=== PATIENT | male | born 1945 | race Two or more races ===

== ENCOUNTER 2024-11-15 09:19 | Emergency (ER) | payer OTHER ==
[~2024-11-15] VITALS: Ht 190.5 cm; Wt 123.8 kg
[2024-11-15 09:51] VITALS: BP 131/76; O2SAT 93
[2024-11-15] MEDS ORDERED: METFORMIN HCL500 M3 PO (09:57)
[2024-11-15] MEDS ORDERED: COZAAR100 MG PO (09:57)
[2024-11-15] MEDS ORDERED: NEURONTIN600 M1 PO (09:57)
[2024-11-15] MEDS ORDERED: SYNTHROID150 MCG PO (09:57)
[2024-11-15] MEDS ORDERED: LASIX40 MG (09:58)
[2024-11-15] MEDS ORDERED: LEVALBUTEROL HCL 0.63 MG/3 ML SOLUTION IH SCH (10:15)
[2024-11-15 11:24] LABS: BASO % 0.5 % (0.1-1.2); EOS # 0.68 (0.04-0.54); EOS % 10.4 % (0.7-7.0); LYMPH # 2.09 (1.18-3.74); LYMPH % 31.9 % (19.3-53.1); MEAN PLATELET VOLUME 9.50 fl (9.4-12.4); MONO # 0.43 (0.24-0.82); MONO % 6.6 % (4.7-12.5); NEUT # 3.31 (1.56-6.13); NEUT % 50.4 % (34.0-71.1); RED CELL DISTRIBUTION WIDTH 12.7 % (11.6-14.4)
[2024-11-15 12:25] LABS: BUN CREA RATIO 19.0 (7.0-25.0); CREATININE SERUM 1.09 mg/dL (0.70-1.30); GFR 65.26; GLUCOSE FASTING 128.0 mg/dL (65-100); OSMOLALITY SERUM 282.0 MOSM/KG (275-295)
[2024-11-15 13:48] LABS: ABG PH 7.405 (7.35-7.45); ABG PO2 59.9 mmHg (80-100); BICARBONATE 19.8 mmol/l (23-25)
[2024-11-15 13:49] LABS: o2 21 %
== END 2024-11-15 12:55 | disposition home or self-care (01) ==
LOC: ER 09:55
PROVIDERS: Emergency Medicine
DX: J22 Unspecified acute lower respiratory infection (principal); J45.909 Unspecified asthma, uncomplicated; I10 Essential (primary) hypertension; E03.8 Other specified hypothyroidism; E11.9 Type 2 diabetes mellitus without complications; Z79.84 Long term (current) use of oral hypoglycemic drugs